=== PATIENT | female | born 1990 | race Caucasian/White ===

== ENCOUNTER → 2016-10-11 | Outpatient (CLI) | payer OTHER ==
[~2016-10-11] VITALS: Ht 157.5 cm; Wt 233.2 kg
[~2016-10-11] MED LIST: ATHENOL325 MG PO; HYDROCODON-ACE1 EAC8; IRON325 M1 PO; IRON325 MG PO; NOHOMEMEDS; PERCOCET 5/31 TABLET PO; PRENATAL TABLE1 EAC3 PO; TYLENOL EXTRA500 MG PO; ZOFRAN8 MG PO
[2016-10-11 12:57] VITALS: BP 113/67
== END | disposition home or self-care (01) ==
LOC: IVINF 10-10 13:00
DX: O36.0920 Maternal care for other rhesus isoimmunization, second trimester, not applicable or unspecified (principal); Z3A.28 28 weeks gestation of pregnancy; Z88.0 Allergy status to penicillin
CPT/HCPCS: 96372; J2790

== ENCOUNTER 2016-11-20 03:01 | Outpatient (CLI) | payer OTHER ==
[2016-11-20 03:17] VITALS: BP 128/76
[2016-11-20 05:05] VITALS: BP 136/65
== END 2016-11-20 05:25 | disposition home or self-care (01) ==
LOC: LDRP-OP 03:01 → 2WEST 03:02 → LDRP-OP 01-15 14:31
DX: O47.03 False labor before 37 completed weeks of gestation, third trimester (principal); Z3A.36 36 weeks gestation of pregnancy; O26.893 Other specified pregnancy related conditions, third trimester; O99.213 Obesity complicating pregnancy, third trimester; E66.01 Morbid (severe) obesity due to excess calories; Z68.41 Body mass index [BMI] 40.0-44.9, adult; F12.10 Cannabis abuse, uncomplicated; O99.332 Smoking (tobacco) complicating pregnancy, second trimester; F17.200 Nicotine dependence, unspecified, uncomplicated
CPT/HCPCS: 59025; G0378

== ENCOUNTER 2016-11-30 08:19 | Outpatient (CLI) | payer OTHER ==
[~2016-11-30] VITALS: Ht 157.5 cm; Wt 107.1 kg
[2016-11-30 08:43] VITALS: BP 131/79
[2016-11-30 09:34] VITALS: BP 143/96
[2016-11-30 10:41] VITALS: BP 110/56
[2016-12-01] MEDS ORDERED: IBUPROFEN800 MG PO (02:32)
== END 2016-11-30 11:55 | disposition home or self-care (01) ==
LOC: LDRP-OP 08:19 → 2WEST 08:20 → LDRP-OP 01-15 05:38
DX: O47.1 False labor at or after 37 completed weeks of gestation (principal); Z3A.37 37 weeks gestation of pregnancy
CPT/HCPCS: 59025; G0378

== ENCOUNTER 2016-11-30 20:56 | Inpatient (IN) | payer OTHER ==
[~2016-11-30] VITALS: Ht 157.5 cm; Wt 107.0 kg
[2016-11-30] VITALS (9 sets, daily range): BP systolic 103–135; BP diastolic 58–72
[2016-11-30 22:29] LABS: HEMATOCRIT 36.5 % (36.0-46.0); MCH 30.5 PG (29.0-34.0); MCHC 34.5 G/DL (30.0-36.0); MCV 88.4 FL (83-99); MEAN PLAT.VOLUME 9.8 uM^3 (9.5-12.4); PLATELET COUNT 369 K/uL (156-360); RBC DIS.WIDTH-CV 13.3 % (11.8-14.6); RED BLOOD COUNT 4.13 M/uL (3.80-5.20); WHITE BLOOD COUNT 20.1 K/uL (4.1-10.2)
[2016-12-01] VITALS (12 sets, daily range): BP systolic 104–140; BP diastolic 51–94
[2016-12-01 01:00] LABS: EOSINOPHIL (%) 0.3 % (0-5); EOSINOPHIL COUNT 0.1 K/uL (0-0.3); HEMATOLOGY COMMENT 1 REV; IMMATURE GRANULOCYTE (%) 0.3 % (0.0-0.7); IMMATURE GRANULOCYTE COUNT 0.1 K/uL; LYMPHOCYTE COUNT 2.9 K/uL (1.0-2.8); MONOCYTE (%) 4.5 % (3-12); MONOCYTE COUNT 0.9 K/uL (0-0.8); NEUTROPHIL (%) 80.5 % (45-76); NEUTROPHIL COUNT 16.1 K/uL (1.8-6.4); USER ID SLU
[2016-12-01] MEDS ORDERED: IBUPROFEN800 MG PO (02:32)
[2016-12-02 07:40] VITALS: BP 133/85
[2016-12-02 14:41] VITALS: BP 116/80
== END 2016-12-02 18:18 | disposition home or self-care (01) | DRG 775 ==
LOC: LDRP-OP 20:56 → 2WEST 20:57 → LDRP-OP 01-16 11:58
PROVIDERS: Nurse Practitioner
PROC: 3E0S3BZ Introduction of Anesthetic Agent into Epidural Space, Percutaneous Approach (ICD-10-PCS; 2016-11-30)
PROC: 10E0XZZ Delivery of Products of Conception, External Approach (ICD-10-PCS; principal; 2016-12-01)
PROC: 10907ZC Drainage of Amniotic Fluid, Therapeutic from Products of Conception, Via Natural or Artificial Opening (ICD-10-PCS; 2016-12-01)
DX: O99.344 Other mental disorders complicating childbirth (principal); F33.9 Major depressive disorder, recurrent, unspecified; O36.0931 Maternal care for other rhesus isoimmunization, third trimester, fetus 1; Z68.41 Body mass index [BMI] 40.0-44.9, adult; Z37.0 Single live birth; Z3A.37 37 weeks gestation of pregnancy; F41.9 Anxiety disorder, unspecified; F17.210 Nicotine dependence, cigarettes, uncomplicated; I83.90 Asymptomatic varicose veins of unspecified lower extremity; M12.9 Arthropathy, unspecified; O99.334 Smoking (tobacco) complicating childbirth; O99.824 Streptococcus B carrier state complicating childbirth; F12.90 Cannabis use, unspecified, uncomplicated; O26.899 Other specified pregnancy related conditions, unspecified trimester; M46.96 Unspecified inflammatory spondylopathy, lumbar region; M51.26 Other intervertebral disc displacement, lumbar region; E66.9 Obesity, unspecified; O99.214 Obesity complicating childbirth
CPT/HCPCS: 59025; 83030; 85025; 86850; 86870; 86900; 86901; G0378; J2790; J3010; J3370; J7120

== ENCOUNTER 2016-12-04 22:24 | Emergency (ER) | payer OTHER ==
[~2016-12-04] VITALS: Ht 157.5 cm; Wt 102.6 kg
[~2016-12-04 22:24] MED LIST changes: +IBUPROFEN800 MG PO
[2016-12-04 23:26] LABS: EOSINOPHIL (%) 2.8 % (0-5); EOSINOPHIL COUNT 0.3 K/uL (0-0.3); HEMATOCRIT 33.2 % (36.0-46.0); IMMATURE GRANULOCYTE (%) 0.1 % (0.0-0.7); IMMATURE GRANULOCYTE COUNT 0.1 K/uL; LYMPHOCYTE COUNT 2.7 K/uL (1.0-2.8); MCH 29.6 PG (29.0-34.0); MCHC 33.7 G/DL (30.0-36.0); MCV 87.6 FL (83-99); MEAN PLAT.VOLUME 9.2 uM^3 (9.5-12.4); MONOCYTE (%) 6.2 % (3-12); MONOCYTE COUNT 0.6 K/uL (0-0.8); NEUTROPHIL (%) 64.6 % (45-76); NEUTROPHIL COUNT 6.6 K/uL (1.8-6.4); PLATELET COUNT 379 K/uL (156-360); RBC DIS.WIDTH-CV 13.1 % (11.8-14.6); RBC DIS.WIDTH-SD 39.8 % (39-53); RED BLOOD COUNT 3.79 M/uL (3.80-5.20); WHITE BLOOD COUNT 10.2 K/uL (4.1-10.2)
[2016-12-04 23:35] LABS: CHLORIDE 106 mEq/L (99-109); POTASSIUM 3.8 mEq/L (3.7-5.4); SODIUM 138 mEq/L (136-147)
[2016-12-04 23:37] LABS: GLUCOSE 90 mg/dL (70-99)
[2016-12-04 23:38] LABS: ANION GAP 11 MEQ/L (2-14)
[2016-12-04 23:39] LABS: TOTAL BILIRUBIN 0.2 mg/dL (0.0-1.0)
[2016-12-04 23:41] LABS: ALKALINE PHOSPHATASE 130 IU/L (3-129); GFR ESTIMATE (CALCULATED) > 59 mL/min/
[2016-12-04 23:42] LABS: UREA NITROGEN (BUN) 11 mg/dL (9-23)
[2016-12-04 23:44] LABS: LIPASE 26 U/L (1.0-51.0)
[2016-12-05 00:18] LABS: ADD MIUA? YES; BILIRUBIN NEGATIVE; BLOOD LARGE; COLOR YELLOW ((YELLOW)); GLUCOSE (STRIP) NEGATIVE; KETONES NEGATIVE; LEUKOCYTES MODERATE; NITRITE NEGATIVE; PROTEIN (STRIP) 30; SPECIFIC GRAVITY 1.034 (1.000-1.030); UROBILINOGEN 0.2 MG/DL (0.2-1.0)
[2016-12-05 00:24] LABS: BACTERIA NONE SEEN /HPF; EPITHELIAL CELLS 1+ /HPF; MUCUS 3+ /LPF; RED BLOOD CELLS 30-40 /HPF (0-5); UCUL ADDED? NO
[2016-12-05 00:45] VITALS: BP 97/54
== END 2016-12-05 01:09 | disposition home or self-care (01) ==
LOC: EME 22:24
PROVIDERS: Emergency Medicine
DX: O89.4 Spinal and epidural anesthesia-induced headache during the puerperium (principal); R51 Headache; R10.9 Unspecified abdominal pain; D64.9 Anemia, unspecified; F17.200 Nicotine dependence, unspecified, uncomplicated
CPT/HCPCS: 80053; 81003; 83690; 85025; 99281; 99285; J0780; J1200; J1885; J7030

== ENCOUNTER 2018-03-23 18:21 | Emergency (ER) | payer OTHER ==
[~2018-03-23] VITALS: Ht 157.5 cm; Wt 106.6 kg
[2018-03-23 19:24] LABS: APPEARANCE SL.HAZY ((CLEAR)); BILIRUBIN NEGATIVE; BLOOD LARGE; COLOR YELLOW ((YELLOW)); GLUCOSE (STRIP) NEGATIVE; KETONES NEGATIVE; LEUKOCYTES NEGATIVE; NITRITE NEGATIVE; PROTEIN (STRIP) 30; UROBILINOGEN 0.2 MG/DL (0.2-1.0)
[2018-03-23 19:28] LABS: HEMATOCRIT 39.1 % (36.0-46.0); HEMOGLOBIN 13.2 G/DL (11.9-15.5); MCH 27.9 PG (29.0-34.0); MCHC 33.8 G/DL (30.0-36.0); MCV 82.7 FL (83-99); PLATELET COUNT 322 K/uL (156-360); RBC DIS.WIDTH-CV 13.9 % (11.8-14.6); RBC DIS.WIDTH-SD 41.7 % (39-53); RED BLOOD COUNT 4.73 M/uL (3.80-5.20); WHITE BLOOD COUNT 8.3 K/uL (4.1-10.2)
[2018-03-23 19:28] LABS: BACTERIA RARE /HPF; EPITHELIAL CELLS 2+ /HPF; MUCUS TRACE /LPF; RED BLOOD CELLS TNTC /HPF (0-5); UCUL ADDED? YES; WHITE BLOOD CELLS 0-5 /HPF (0-5)
[2018-03-23 19:37] LABS: ALBUMIN 4.6 g/dL (3.2-4.8); CHLORIDE 107 mEq/L (99-109); POTASSIUM 4.2 mEq/L (3.7-5.4); SODIUM 142 mEq/L (136-147)
[2018-03-23 19:39] LABS: GLUCOSE 91 mg/dL (70-99); TOTAL PROTEIN 8.2 g/dL (6.4-8.3)
[2018-03-23 19:41] LABS: TOTAL BILIRUBIN 0.4 mg/dL (0.0-1.0)
[2018-03-23 19:43] LABS: ALKALINE PHOSPHATASE 75 IU/L (3-129); CREATININE 0.9 mg/dL (0.6-1.3); GFR ESTIMATE (CALCULATED) > 59 mL/min/
[2018-03-23 19:44] LABS: UREA NITROGEN (BUN) 9 mg/dL (9-23)
[2018-03-23 19:45] LABS: AST (GOT) 19 IU/L (2-34)
[2018-03-23 19:46] LABS: ALT (GPT) 17 IU/L (3-49)
[2018-03-23 19:51] LABS: QUANTITATIVE HCG < 4.0 MIU/ML
[2018-03-23] MEDS ORDERED: PERCOCET 5/31 TABLET PO (22:04)
[2018-03-23 22:22] VITALS: BP 138/94
== END 2018-03-23 22:22 | disposition home or self-care (01) ==
LOC: EME 18:21
PROVIDERS: Physician Assistant
DX: R10.2 Pelvic and perineal pain (principal); N93.9 Abnormal uterine and vaginal bleeding, unspecified; Z97.5 Presence of (intrauterine) contraceptive device; J30.2 Other seasonal allergic rhinitis; F17.200 Nicotine dependence, unspecified, uncomplicated; Z87.42 Personal history of other diseases of the female genital tract; Z88.0 Allergy status to penicillin; Z91.018 Allergy to other foods
CPT/HCPCS: 76856; 80053; 81003; 84702; 85027; 87086; 99281; 99284